=== PATIENT | female | born 1945 | race American Indian/Alaskan Native ===

== ENCOUNTER 2022-10-08 23:26 | Inpatient (IN) | payer OTHER, MEDICAID ==
--- NOTE | 2020-10-10 19:15 | NUR ---
RECD. RESTING IN BED, AWAKE, A/OX4. RESPIRATION EVEN AND UNLABORED. ON 02 AT 2 LITERS VIA N/C. USES THE BSC WITH ASSISTANCE. SAFETY MEASURES ENFORCED. CALL LIGHT IN REACH. IV OF NS NOT INFUSING, PATIENT WANT TO BE DISCONNECTED UNTIL SHE GOES TO SLEEP, FINDS HARD TO GO TO THE BSC IF CONNECTED TO IV. INSTRUCTED TO CALL NURSE WHEN NEEDING HELP TO GO TO THE BSC. VERBALIZED UNDERSTANDING. DENIES PAIN 0/10.
[~2022-10-08] VITALS: Ht 157.5 cm; Wt 86.6 kg
[2022-10-08 23:33] VITALS: BP 130/77
--- NOTE | 2022-10-08 23:35 | NUR ---
TO BED 10
--- NOTE | 2022-10-08 23:40 | NUR ---
Pt BIBA ALS coming from home with c/o SOB and cough. Pt has non-productive cough. Medics in field stated they did a 12 lead ekg and showed A-Fib w/ RVR. Pt has hx of A-Fib, Asthma, DM, and CHF. Pt placed on NC with 4L and O2 is at 99%. No chest pain. Denies n/v. Bed in lowest position.
--- NOTE | 2022-10-08 23:45 | NUR ---
EKG completed and gve to Dr. Tobin for review.
--- NOTE | 2022-10-08 23:52 | NUR ---
central supply tech at bedside.
--- NOTE | 2022-10-08 23:54 | NUR ---
Accucheck done and results were 156.
[2022-10-08] MEDS ORDERED: NACL 0.9% 1,000 ML IV ONE (23:55)
--- NOTE | 2022-10-08 23:58 | NUR ---
X-Ray at bedside.
[2022-10-09 00:06] LABS: BASOPHILS # (AUTO) 0.1 K/uL (0.00-0.22); BASOPHILS % (AUTO) 0.4 % (0.0-2.0); EOSINOPHILS % (AUTO) 0.2 % (0.0-4.0); HEMATOCRIT 28.7 % (36-48); HEMOGLOBIN 9.5 g/dL (12.0-16.0); LYMPHOCYTES # (AUTO) 0.6 K/uL (2.5-16.5); MEAN CORPUSCULAR HEMOGLOBIN 29 pg (27-31); MEAN CORPUSCULAR HGB CONC 33 g/dL (33-37); MEAN CORPUSCULAR VOLUME 87.3 fL (80-94); MONOCYTES # (AUTO) 0.3 K/uL (0.8-1.0); MONOCYTES % (AUTO) 1.9 % (1.7-9.3); NEUTROPHILS # (AUTO) 13.3 K/uL (1.8-7.7); NEUTROPHILS % (AUTO) 93.5 % (42.2-75.2); PLATELET COUNT (AUTO) 183 K/uL (140-450); RED BLOOD CELL COUNT(AUTO) 3.29 MIL/uL (4.20-5.40); RED CELL DISTRIBUTION WIDTH 17.3 % (11.6-13.7); WHITE BLOOD COUNT (AUTO) 14.3 K/uL (4.8-10.8)
[2022-10-09 00:37] LABS: ALBUMIN 2.5 g/dL (3.4-5.0); ANION GAP 13.3 (8-16); ASPARTATE AMINOTRANSFERASE 26 U/L (15-37); CARBON DIOXIDE 24.5 mmol/L (21-32); CHLORIDE 103 mmol/L (98-107); CREATININE 1.1 mg/dL (0.6-1.3); GLUCOSE 147 mg/dL (74-106); POTASSIUM 3.8 mmol/L (3.5-5.1); SODIUM SERUM 137 mmol/L (136-145); TOTAL BILIRUBIN 1.3 mg/dL (0.0-1.0); UREA NITROGEN, BLOOD 26 mg/dL (7-18)
--- NOTE | 2022-10-09 00:45 | NUR ---
Pt states she feels better. Does not feel anymore sob. Pt currently only c/o congestion and cough. No pain.
--- NOTE | 2022-10-09 00:56 | NUR ---
Dr. Tobin at bedside examining pt.
[2022-10-09] MEDS ORDERED: FUROSEMIDE 40 MG/4 ML VIAL IVP ONE (01:05)
[2022-10-09] MEDS ORDERED: DILTIAZEM 25 MG/5 ML VIAL IVP ONE (01:05)
[2022-10-09] MEDS ORDERED: ALBUTEROL SULFATE/IPRATROPIU 3 ML SOL IH ONE (01:25)
--- NOTE | 2022-10-09 01:41 | NUR ---
Covid and flu swab sent to lab.
--- NOTE | 2022-10-09 02:13 | NUR ---
RT at bedside.
--- NOTE | 2022-10-09 02:38 | NUR ---
Pt's HR is at 93 and fluctuates but the highest it is going is at 111 bpm. ER physician notified and will hold off on the Cardizem 10mg IV push.
--- NOTE | 2022-10-09 04:28 | NUR ---
Report given to Samanta for pt to go to room 122B.
--- NOTE | 2022-10-09 04:44 | NUR ---
Belonging List completed.
[2022-10-09 05:05] VITALS: BP 112/58
--- NOTE | 2022-10-09 05:05 | NUR ---
RECEIVED PT FROM ER ADMITTED TO [facility] RM 122B. AWAKE, ALERT AND VERBALLY RESPONSIVE. PT IS WITH CHIEF COMPLAINTS OF SOB AND COUGH STARTED COUPLE MONTHS AGO. PT IS WITH DIAGNOSIS OF FLUID OVERLOAD AND ASTHMA EXACERBATION. PT HAS HISTORY OF A-FIB, ASTHMA, DM, GERD, HTN AND HAVE 3 STENTS. NO KNOWN ALLERGY AND IS A FULL CODE. RESPIRATION EVEN AND BILATERAL LUNGS SOUND CLEAR ON AUSCULTATION. PT IS ON CARDIAC DIET AND IS A BLOOD GLUCOSE CHECK. IV SALINE LOCK IS ON LEFT FOREARM 20G. NO SKIN OPENING. PT IS ON NASAL CANULA AT 3 LPM. NO EDEMA. PT IS WITH DRY COUGH. CONTINUE MONITORING.
--- NOTE | 2022-10-09 05:11 | NUR ---
Patient will be admitted to care of Samanta ALEJANDRO. Admited to TELE. Will go to room 122B. Belongings list completed.
--- NOTE | 2022-10-09 06:30 | NUR ---
BLOOD SUGAR CHECK = 111, NO SLIDING SCALE COVERAGE. NO INSULIN INJECTION NEEDED.
--- NOTE | 2022-10-09 07:45 | NUR ---
ENDORSED TO DAY SHIFT NURSE FOR CONTINUITY OF CARE. PT IS ON STABLE CONDITION. NO SOB OR DISTRESS. ALL SAFETY MEASURES IN PLACE. ALL NEEDS ATTENDED.
[2022-10-09 07:53] LABS: BASOPHILS % (AUTO) 0.1 % (0.0-2.0); EOSINOPHILS % (AUTO) 0.1 % (0.0-4.0); HEMATOCRIT 26.5 % (36-48); HEMOGLOBIN 8.7 g/dL (12.0-16.0); LYMPHOCYTES # (AUTO) 1.1 K/uL (2.5-16.5); LYMPHOCYTES % (AUTO) 8.2 % (20.5-51.1); MEAN CORPUSCULAR HEMOGLOBIN 29 pg (27-31); MEAN CORPUSCULAR HGB CONC 33 g/dL (33-37); MEAN CORPUSCULAR VOLUME 86.7 fL (80-94); MONOCYTES # (AUTO) 0.5 K/uL (0.8-1.0); MONOCYTES % (AUTO) 3.9 % (1.7-9.3); NEUTROPHILS # (AUTO) 12.2 K/uL (1.8-7.7); NEUTROPHILS % (AUTO) 87.7 % (42.2-75.2); PLATELET COUNT (AUTO) 188 K/uL (140-450); RED BLOOD CELL COUNT(AUTO) 3.06 MIL/uL (4.20-5.40); RED CELL DISTRIBUTION WIDTH 17.5 % (11.6-13.7); WHITE BLOOD COUNT (AUTO) 13.9 K/uL (4.8-10.8)
[2022-10-09 08:00] VITALS: BP 104/60
--- NOTE | 2022-10-09 08:00 | NUR ---
Received patient resting in bed, alert and oriented. not in any form of distress. patient having non-productive cough. denies pain at this time. plan of care discussed. patient verbalized understanding.
[2022-10-09] MEDS ORDERED: ALLO100T21 PO (08:21)
[2022-10-09] MEDS ORDERED: CALC-1646 PO (08:21)
[2022-10-09] MEDS ORDERED: SERT25TA PO (08:21)
[2022-10-09] MEDS ORDERED: TICA90TA PO (08:21)
[2022-10-09] MEDS ORDERED: ACET-8905 PO (08:21)
[2022-10-09] MEDS ORDERED: FURO-570 PO (08:21)
[2022-10-09] MEDS ORDERED: APIX2.5 PO (08:21)
[2022-10-09] MEDS ORDERED: METO50TE2 PO (08:21)
[2022-10-09] MEDS ORDERED: AMLO2.5T PO (08:23)
[2022-10-09] MEDS ORDERED: INSU100S22 SC (08:23)
[2022-10-09] MEDS ORDERED: DEXTROSE 50% 50 ML SYR IVP PRN (08:35)
[2022-10-09 09:02] LABS: ANION GAP 14.3 (8-16); CHLORIDE 103 mmol/L (98-107); CREATININE 1.2 mg/dL (0.6-1.3); GLUCOSE 120 mg/dL (74-106); POTASSIUM 3.3 mmol/L (3.5-5.1); SODIUM SERUM 137 mmol/L (136-145); UREA NITROGEN, BLOOD 27 mg/dL (7-18)
[2022-10-09] MEDS ORDERED: HYDROcodone/APAP 5/325 MG 1 TAB TAB PO PRN (09:05)
[2022-10-09] MEDS: BENZONATATE 100 MG CAPLF PO PRN (09:41)
[2022-10-09] MEDS: FUROSEMIDE 40 MG/4 ML VIAL IVP SCH (09:41)
[2022-10-09] MEDS: NACL 0.9% 1,000 ML IV SCH (10:35)
[2022-10-09] MEDS ORDERED: MAG SULF 2000 MG/WATER PREMIX 50 ML IV PRN (10:35)
[2022-10-09] MEDS ORDERED: ACETAMINOPHEN 325 MG TAB PO PRN (10:35)
[2022-10-09] MEDS ORDERED: POTASSIUM CHLORIDE 10 MEQ TABER PO PRN (10:35)
[2022-10-09] MEDS ORDERED: ONDANSETRON 4 MG/2 ML VIAL IVP PRN (10:35)
--- NOTE | 2022-10-09 11:06 | NUR ---
PATIENT HAS BEEN SCREENED AND CATEGORIZED MODERATE NUTRITION RISK. PATIENT WILL BE SEEN WITHIN 3-5 DAYS OF ADMISSION. 10/12/[address] Addendum: 10/09/22 at [address] REFERRAL RECEIVED NOT APPLICABLE
[2022-10-09 12:00] VITALS: BP 115/59
[2022-10-09] MEDS: BLOOD GLUCOSE MONITORING 1 DEV DEV FS SCH ×3 (12:03→20:25)
[2022-10-09] MEDS ORDERED: ALBUTEROL SULFATE/IPRATROPIU 3 ML SOL IH PRN (12:05)
[2022-10-09] MEDS: INSULIN LANTUS 100 UNITS/ML 10 ML VIAL SUBQ SCH (12:11)
[2022-10-09 12:15] LABS: PROTHROMBIN TIME 12.1 secs (10.8-13.4)
[2022-10-09 12:23] LABS: CHOL/HDL RATIO 1.6 (1-4.5); FREE T4 (FREE THYROXINE) 0.92 ng/dL (0.76-1.46); THYROID STIMULATING HORMONE 2.88 uIU/mL (0.34-3.74)
[2022-10-09 16:00] VITALS: BP 104/61
--- NOTE | 2022-10-09 17:10 | NUR ---
DISCHARGE PLANNING PATIENT IS A 77-YEAR-OLD FEMALE ADMITTED AT THE [facility]/ED ON 10/09/2022 DUE TO CHRONIC COUGH WITH SHORTNESS OF BREATH. PATIENT HAS MEDICAL HISTORY OF ASTHMA, CAD WITH STENTS X3, HYPERTENSION, DIABETES, GERD AND A FIB. SW MET WITH PATIENT AT BEDSIDE TO DISCUSS AND GATHER PATIENT'S COLLATERAL INFORMATION. PATIENT WAS ALERT AND AWAKE DURING MEETING WITH SW REPORTED LIVING ALONE AT HER APARTMENT IN [facility]. PER PATIENT SHE HAS GOOD SUPPORT SYSTEM FROM HER DAUGHTER RAUL ALBA WHO IS HER EMERGENCY CONTACT AND MEDICAL DECISION MAKER. PATIENT REPORTED NOT HAVING ADVANCE DIRECTIVES AND WAS NOT INTERESTED ON GETTING INFORMATION FORMS PROVIDED BY SW AT THE TIME OF THE VISIT. PATIENT REPORTED HAVING A WHEELCHAIR AND A WALKER AT HOME HER DME AND NOT HAVING ANY ISSUES WITH GETTING OR TAKING ANY OF HER MEDICATIONS FROM THE [facility] IN [place] . PER PATIENT THE PHARMACY SEND HER MEDICATIONS DIRECTLY TO HER APARTMENT AND HER DAUGHTER MAKE SURE SHE TAKE THEM PRESCRIBED AND NEEDED. SW DISCUSSED WITH PATIENT ABOUT THE IMPORTANCE OF MAKING A FOLLOW UP APPOINTMENT WITHIN 5-7 DAYS WITH HER PCP AT [facility] IN [facility] AFTER HER DISCHARGE. PATIENT AGREED AND STATED THAT SHE HAS GOOD RELATIONSHIP WITH HER DR. AND HER LAST APPOINTMENT WAS ABOUT A MONTH AGO. PER PATIENT SHE HAS ALREADY AN APPOINTMENT SCHEDULED WITH HER PCP FOR Saturday10/11/2022. AT 3:00PM. PER PATIENT SHE OR HER DAUGHTER WILL MAKE HER OWN APPOINTMENTS THEREFORE; PATIENT DECLINED FOR SW TO MAKE HER FOLLOW UP APPOINTMENT: WITH PRIMARY DOCTOR AFTER SHE DISCHARGES FROM [facility]. PATIENT STATED THAT HER DAUGHTER RAUL ALBA IS HER DPSS/IHSS CAREGIVER AND SHE WILL BE ASSISTING CHANGING HER APPOINTMENTS IF SHE HAS TO OR WITH TRANSPORTATION BACK HOME WHEN SHE IS READY AND STABLE TO DISCHARGE. PER PATIENT SHE IS OPEN FOR HOME HEALTH IF RECOMMENDS WITH NO PARTICULAR AGENCY. THANH/ZEENAT WILL FOLLOW UP WITH PATIENT NEEDED.
[2022-10-09] MEDS: INSULIN LISPRO SLIDING SCALE 100 UNITS/ML VIAL SUBQ PRN (17:12)
--- NOTE | 2022-10-09 19:20 | NUR ---
RECEIVED REPORT FROM MORNING SHIFT NURSE. PT IS SITTING ON THE BED AND EATING DINNER. PT IS AOX4, ABLE TO VERBALIZE NEEDS AND ABLE TO FOLLOW COMMANDS. PT IS AMBULATORY WITH ASSIST AND ON 3L NC. [facility] AND HAS IV ON RIGHT FOREARM GAUGE 20 RUNNING WITH NS AT 50CC/HR. PT SKIN IS INTACT. ALL SAFETY MEASURES IMPLEMENTED. BED IN LOW POSITION, BED WHEELS ON LOCKED AND CALL LIGHT WITHIN REACH.
[2022-10-09 20:00] VITALS: BP 147/74
[2022-10-09] MEDS: CALCIUM CARB/VIT-D 500 MG/200 IU 1 TAB PO SCH (20:12)
[2022-10-09] MEDS: DOCUSATE SODIUM 100 MG GELCAP PO SCH (20:12)
[2022-10-09] MEDS: APIXABAN 2.5 MG TAB PO SCH (20:12)
--- NOTE | 2022-10-09 20:12 | NUR ---
ALL SCHEDULED AND PRESCRIBED MEDICATION WAS GIVEN TO PT PER MD ORDER. ALL SAFETY MEASURES IMPLEMENTED. BED IN LOW POSITION, BED WHEELS ON LOCKED AND CALL LIGHT WITHIN REACH.
--- NOTE | 2022-10-09 20:25 | NUR ---
PT BLOOD GLUCOSE IS 150. NO INSULIN COVERAGE NEEDED. ALL SAFETY MEASURES IMPLEMENTED. BED IN LOW POSITION, BED WHEELS ON LOCKED AND CALL LIGHT WITHIN REACH.
[2022-10-09] MEDS ORDERED: ATORVASTATIN 20 MG TAB PO SCH (21:00)
--- NOTE | 2022-10-09 22:00 | NUR ---
PT WAS GIVEN CRACKERS PER PT REQUEST. NO S/S OF RESPIRATORY DISTRESS NOTED AND PT DENIES PAIN AT THIS TIME. ALL SAFETY MEASURES IMPLEMENTED. BED IN LOW POSITION, BED WHEELS ON LOCKED AND CALL LIGHT WITHIN REACH.
[2022-10-10] VITALS: BP 139/64
--- NOTE | 2022-10-10 | NUR ---
PT IS SLEEPING CHEST RISE AND FALL SYMMETRICALLY NOTED. RESPIRATION IS EVEN AND UNLABORED. ALL SAFETY MEASURES IMPLEMENTED. BED IN LOW POSITION, BED WHEELS ON LOCKED AND CALL LIGHT WITHIN REACH.
--- NOTE | 2022-10-10 02:00 | NUR ---
CHECKED THE PT STILL SLEEPING. CHEST RISE AND FALL SYMMETRICALLY NOTED. RESPIRATION IS EVEN AND UNLABORED. ALL SAFETY MEASURES IMPLEMENTED. BED IN LOW POSITION, BED WHEELS ON LOCKED AND CALL LIGHT WITHIN REACH.
[2022-10-10 04:00] VITALS: BP 131/66
[2022-10-10] MEDS: HYDROcodone/APAP 7.5/325 MG 1 TAB PO PRN (04:42)
--- NOTE | 2022-10-10 04:42 | NUR ---
PRN PAIN MEDICATION WAS GIVEN TO PT DUE TO FIBROMYALGIA PAIN WITH THE PAIN SCALE OF 6/10. ALL SAFETY MEASURES IMPLEMENTED. BED IN LOW POSITION, BED WHEELS ON LOCKED AND CALL LIGHT WITHIN REACH.
[2022-10-10] MEDS: NACL 0.9% 1,000 ML IV SCH (06:26)
[2022-10-10] MEDS: BLOOD GLUCOSE MONITORING 1 DEV DEV FS SCH ×4 (06:31→21:42)
--- NOTE | 2022-10-10 06:31 | NUR ---
PT BLOOD GLUCOSE IS 94. NO INSULIN COVERAGE NEEDED. ALL SAFETY MEASURES IMPLEMENTED. BED IN LOW POSITION, BED WHEELS ON LOCKED AND CALL LIGHT WITHIN REACH.
[2022-10-10 07:24] LABS: BASOPHILS % (AUTO) 0.4 % (0.0-2.0); EOSINOPHILS # (AUTO) 0.3 K/uL (0-0.4); EOSINOPHILS % (AUTO) 3.2 % (0.0-4.0); HEMATOCRIT 26.3 % (36-48); HEMOGLOBIN 8.8 g/dL (12.0-16.0); LYMPHOCYTES # (AUTO) 1.1 K/uL (2.5-16.5); LYMPHOCYTES % (AUTO) 13.8 % (20.5-51.1); MEAN CORPUSCULAR HEMOGLOBIN 29 pg (27-31); MEAN CORPUSCULAR HGB CONC 34 g/dL (33-37); MEAN CORPUSCULAR VOLUME 86.7 fL (80-94); MONOCYTES # (AUTO) 0.6 K/uL (0.8-1.0); MONOCYTES % (AUTO) 7.7 % (1.7-9.3); NEUTROPHILS # (AUTO) 6.1 K/uL (1.8-7.7); NEUTROPHILS % (AUTO) 74.9 % (42.2-75.2); PLATELET COUNT (AUTO) 175 K/uL (140-450); RED BLOOD CELL COUNT(AUTO) 3.03 MIL/uL (4.20-5.40); RED CELL DISTRIBUTION WIDTH 17.5 % (11.6-13.7); WHITE BLOOD COUNT (AUTO) 8.1 K/uL (4.8-10.8)
--- NOTE | 2022-10-10 07:27 | NUR ---
PT IS STABLE. ENDORSED PT TO MORNING SHIFT NURSE FOR CONTINUITY OF CARE.
[2022-10-10 07:39] LABS: ANION GAP 11.9 (8-16); CARBON DIOXIDE 26.6 mmol/L (21-32); CHLORIDE 103 mmol/L (98-107); GLUCOSE 98 mg/dL (74-106); POTASSIUM 3.5 mmol/L (3.5-5.1); SODIUM SERUM 138 mmol/L (136-145); UREA NITROGEN, BLOOD 26 mg/dL (7-18)
[2022-10-10 07:48] LABS: MAGNESIUM 1.7 mg/dL (1.8-2.4); PHOSPHORUS 3.4 mg/dL (2.5-4.9)
[2022-10-10 08:00] VITALS: BP 98/60
--- NOTE | 2022-10-10 08:00 | NUR ---
RECEIVED PATIENT RESTING IN BED, NOT IN ANY FORM OF DISTRESS. ASSESSMENT DONE AND DOCUMENTED. UPDATED PLAN OF CARE. PATIENT VERBALIZED UNDERSTANDING. WILL CONTINUE TO MONITOR.
[2022-10-10] MEDS ORDERED: lisinopriL 5 MG TAB PO SCH (09:00)
[2022-10-10] MEDS: ASPIRIN 81 MG TAB.CHEW PO SCH (09:00)
[2022-10-10] MEDS ORDERED: amLODIPine 5 MG TAB PO SCH (09:00)
[2022-10-10] MEDS ORDERED: INSULIN GLARGINE HUM REC ANLOG U SCH (09:00)
[2022-10-10] MEDS: METOPROLOL SUCCINATE 50 MG TABER PO SCH (09:00)
[2022-10-10] MEDS: PANTOPRAZOLE 40 MG INJ VIAL IVP SCH (09:24)
[2022-10-10] MEDS: FUROSEMIDE 40 MG/4 ML VIAL IVP SCH (09:24)
[2022-10-10] MEDS: DOCUSATE SODIUM 100 MG GELCAP PO SCH ×2 (09:25→21:37)
[2022-10-10] MEDS: allopurinoL 100 MG TAB PO SCH (09:25)
[2022-10-10] MEDS: SERTRALINE 50 MG TAB PO SCH (09:27)
[2022-10-10] MEDS: CALCIUM CARB/VIT-D 500 MG/200 IU 1 TAB PO SCH ×2 (09:29→21:37)
[2022-10-10] MEDS: INSULIN LANTUS 100 UNITS/ML 10 ML VIAL SUBQ SCH (09:41)
[2022-10-10] MEDS: APIXABAN 2.5 MG TAB PO SCH ×2 (09:41→21:38)
[2022-10-10] MEDS: BENZONATATE 100 MG CAPLF PO PRN ×2 (11:56→22:18)
[2022-10-10 12:00] VITALS: BP 101/62
[2022-10-10] MEDS: INSULIN LISPRO SLIDING SCALE 100 UNITS/ML VIAL SUBQ PRN (12:53)
[2022-10-10 16:00] VITALS: BP 110/58
--- NOTE | 2022-10-10 17:00 | NUR ---
PATIENT DISCHARGED HOME ACCOMPANIED BY DAUGHTER. INSTRUCTIONS GIVEN. IV ACCESS REMOVED.STABLE UPON DISCHARGED. Addendum: 10/10/22 at 1713 by [facility] 11 FLAVIA RN DISREGARD ABOVE NOTES. WRONG PATIENT
--- NOTE | 2022-10-10 18:00 | NUR ---
DR. PARHAM HERE AND SEEN THE PATIENT.
[2022-10-10] MEDS ORDERED: ACETYLCYSTEINE 10% (100 MG/ML) 100 MG/ML VIAL INH SCH (19:00)
--- NOTE | 2022-10-10 19:48 | NUR ---
FOUND PATIENT ON 2LNC RESTING COMFORTABLY AND SATING AT 100%. PATIENT SHOWED NO SIGNS OF RESPIRATORY DISTRESS. WILL CONTINUE TO MONITOR.
[2022-10-10 20:00] VITALS: BP 124/66
--- NOTE | 2022-10-10 20:20 | NUR ---
COMPLAINT OF UNABLE TO HAVE BM SINCE 10/08/22. PRUNE JUICE GIVEN.
[2022-10-10 21:19] LABS: APPEARANCE,URINE CLEAR (CLEAR); BILIRUBIN,URINE NEGATIVE (NEGATIVE); BLOOD, URINE NEGATIVE (NEGATIVE); COLOR,URINE YELLOW (YELLOW); LEUKOCYTE ESTERASE ,URINE NEGATIVE (NEGATIVE); NITRITE, URINE NEGATIVE (NEGATIVE); UGLUCOSE NEGATIVE (NEGATIVE)
--- NOTE | 2022-10-10 21:20 | NUR ---
ABLE TO HAVE MODERATE AMOUNT OF FORMED BROWN BM. ASSISTED BACK TO BED. BEDDINGS CHANGED.
[2022-10-10 21:33] LABS: BARBITURATE, URINE NEGATIVE ng/ml (NEG <=200); BENZODIAZEPINE, URINE NEGATIVE ng/mL (NEG <=200); CANNABINOID, URINE NEGATIVE ng/mL (NEG <=50); COCAINE, URINE NEGATIVE ng/mL (NEG <=300); OPIATE, URINE POSITIVE ng/mL (NEG <=2000); PHENCYCLIDINE SCREEN,URINE NEGATIVE ng/mL (NEG <=25)
--- NOTE | 2022-10-10 22:18 | NUR ---
COMPLAINT OF INTERMITTENT PRODUCTIVE COUGHING WITH WHITE AND YELLOW PHLEGM. MEDICATED WITH TESSALON PERLES PER MD ORDER.
[2022-10-11] VITALS: BP 132/62
[2022-10-11] MEDS: guaiFENesin DM 200/20 MG-10 ML 10 ML UDC PO PRN ×2 (00:13→15:09)
--- NOTE | 2022-10-11 00:13 | NUR ---
WITH PERSISTENT COUGHING. MEDICATED WITH ROBITUSSIN PER MD ORDER.
--- NOTE | 2022-10-11 01:15 | NUR ---
NO COUGHING NOTED. RESTING COMFORTABLY IN BED.
--- NOTE | 2022-10-11 03:00 | NUR ---
ASSISTED TO BSC TO VOID. SAFETY MAINTAINED. TRANSFERRED TO ROOM 127A. COMPLAINING OF VERY COLD ROOM IN 121B.
[2022-10-11 04:00] VITALS: BP 142/51
--- NOTE | 2022-10-11 07:00 | NUR ---
CONDITION REMAIN STABLE. ENDORSED TO AM SHIFT NURSE FOR CONTINUITY OF CARE.
[2022-10-11] MEDS: BLOOD GLUCOSE MONITORING 1 DEV DEV FS SCH ×2 (07:30→12:04)
[2022-10-11 08:00] VITALS: BP 127/67
[2022-10-11 08:01] LABS: BASOPHILS % (AUTO) 0.5 % (0.0-2.0); EOSINOPHILS # (AUTO) 0.2 K/uL (0-0.4); EOSINOPHILS % (AUTO) 2.5 % (0.0-4.0); HEMOGLOBIN 9.8 g/dL (12.0-16.0); LYMPHOCYTES # (AUTO) 1.4 K/uL (2.5-16.5); LYMPHOCYTES % (AUTO) 16.8 % (20.5-51.1); MEAN CORPUSCULAR HEMOGLOBIN 29 pg (27-31); MEAN CORPUSCULAR HGB CONC 34 g/dL (33-37); MEAN CORPUSCULAR VOLUME 87.4 fL (80-94); MONOCYTES # (AUTO) 0.6 K/uL (0.8-1.0); MONOCYTES % (AUTO) 6.9 % (1.7-9.3); NEUTROPHILS % (AUTO) 73.3 % (42.2-75.2); PLATELET COUNT (AUTO) 192 K/uL (140-450); RED BLOOD CELL COUNT(AUTO) 3.32 MIL/uL (4.20-5.40); RED CELL DISTRIBUTION WIDTH 17.6 % (11.6-13.7); WHITE BLOOD COUNT (AUTO) 8.2 K/uL (4.8-10.8)
[2022-10-11] MEDS: ASPIRIN 81 MG TAB.CHEW PO SCH (08:16)
[2022-10-11 08:44] LABS: CARBON DIOXIDE 28.6 mmol/L (21-32); CHLORIDE 102 mmol/L (98-107); GLUCOSE 83 mg/dL (74-106); POTASSIUM 3.6 mmol/L (3.5-5.1); SODIUM SERUM 139 mmol/L (136-145); UREA NITROGEN, BLOOD 23 mg/dL (7-18)
[2022-10-11] MEDS: DOCUSATE SODIUM 100 MG GELCAP PO SCH (09:00)
[2022-10-11] MEDS: METOPROLOL SUCCINATE 50 MG TABER PO SCH (09:00)
[2022-10-11] MEDS: HYDROcodone/APAP 7.5/325 MG 1 TAB PO PRN (09:28)
[2022-10-11] MEDS: CALCIUM CARB/VIT-D 500 MG/200 IU 1 TAB PO SCH (09:29)
[2022-10-11] MEDS: allopurinoL 100 MG TAB PO SCH (09:30)
[2022-10-11] MEDS: PANTOPRAZOLE 40 MG INJ VIAL IVP SCH (09:30)
[2022-10-11] MEDS: FUROSEMIDE 40 MG/4 ML VIAL IVP SCH (09:30)
[2022-10-11] MEDS: SERTRALINE 50 MG TAB PO SCH (09:30)
[2022-10-11] MEDS: INSULIN LANTUS 100 UNITS/ML 10 ML VIAL SUBQ SCH (09:38)
[2022-10-11] MEDS: APIXABAN 2.5 MG TAB PO SCH (09:39)
[2022-10-11 09:55] LABS: MAGNESIUM 1.7 mg/dL (1.8-2.4); PHOSPHORUS 4.1 mg/dL (2.5-4.9)
[2022-10-11 12:00] VITALS: BP 114/75
[2022-10-11] MEDS ORDERED: FURO-572 PO (13:47)
[2022-10-11] MEDS ORDERED: BENZ100C6 PO (13:48)
[2022-10-11 13:57] VITALS: BP 142/51
[2022-10-11 16:00] VITALS: BP 132/60
--- NOTE | 2022-10-11 16:40 | NUR ---
PATIENT DISCHARGED HOME. ACCOMPANIED BY DAUGHTER RAUL. INSTRUCTIONS GIVEN. VERBALIZED UNDERSTANDING. STABLE UPON DISCHARGE.
== END 2022-10-11 16:56 | disposition home or self-care (01) | DRG 291 ==
LOC: MED 23:26 → MTU 10-09 01:50 → MMU 10-11 03:06 → MTU 10-11 09:30
DX: I11.0 Hypertensive heart disease with heart failure (principal); E43 Unspecified severe protein-calorie malnutrition; I50.23 Acute on chronic systolic (congestive) heart failure; E87.70 Fluid overload, unspecified; J40 Bronchitis, not specified as acute or chronic; I48.91 Unspecified atrial fibrillation; K21.9 Gastro-esophageal reflux disease without esophagitis; I50.9 Heart failure, unspecified; D64.9 Anemia, unspecified; Z20.822 Contact with and (suspected) exposure to COVID-19; I25.10 Atherosclerotic heart disease of native coronary artery without angina pectoris; E11.9 Type 2 diabetes mellitus without complications; I34.0 Nonrheumatic mitral (valve) insufficiency; Z96.642 Presence of left artificial hip joint; E83.51 Hypocalcemia; Z79.4 Long term (current) use of insulin; Z68.34 Body mass index [BMI] 34.0-34.9, adult; Z90.710 Acquired absence of both cervix and uterus; Z86.73 Personal history of transient ischemic attack (TIA), and cerebral infarction without residual deficits
CPT/HCPCS: 36415; 71045; 80048; 80053; 80305; 81003; 82140; 82150; 82948; 83036; 83605; 83690; 83735; 83880; 84100; 84439; 84443; 84484; 85025; 85610; 85730; 87040; 87081; 87086; 93005; 96374; 99285; C9113; J0696; J1815; J1940; J3475; J7060; Q0092